=== PATIENT | female | born 1980 | race American Indian/Alaskan Native ===

== ENCOUNTER 2020-08-05 10:24 | Emergency (ER) | payer SELFPAY ==
--- NOTE | 2020-08-05 11:24 | XRay Report ---
RIGHT ANKLE 4 VIEW(S) INDICATION / CLINICAL INFORMATION: PAIBN AND SWELLING COMPARISON: None available. FINDINGS: BONES / JOINT(S): No acute fracture or subluxation. Ankle mortise intact. Small tibiotalar effusion. No significant arthritis. SOFT TISSUES: Mild edema. ADDITIONAL FINDINGS: None. Signer Name: Brian Cage MD Signed: 08/05/2020 11:20 AM Workstation Name: [id number]
[2020-08-05] MEDS ORDERED: HYDROcodone/ACETAMINOPHEN 5-325 MG TAB PO ONE (12:28)
--- NOTE | 2020-08-05 12:49 | Emergency Department Report ---
ED Lower Extremity HPI - General Chief Complaint: Extremity Injury, Lower Stated Complaint: ANKLE PAINS RT Time Seen by Provider: 08/05/20 11:11 Source: patient Mode of arrival: Wheelchair Limitations: No Limitations - History of Present Illness Initial Comments: Patient is a 40-year-old female presents emergency room with complaints of right ankle pain that began yesterday. She states that she was walking up the steps when she felt a popping sensation and had to brace herself. She denies falling to the ground. She denies any numbness or weakness. She states that she has increased pain with ambulation. She states that she had a sprain in this ankle in 2007 but denies any fracture or surgery. She has a past medical history of PCOS and cholecystectomy. she has an allergy to kiwi, strawberries, and nonoxynol 9. - Related Data Previous Rx's Medication Instructions Recorded Last Taken Type Naproxen [EC-Naprosyn] 500 mg PO BID PRN #20 tablet. 08/05/20 Unknown Rx Allergies Allergy/AdvReac Type Severity Reaction Status Date / Time kiwi Allergy Anaphylaxis Verified 08/05/20 10:30 nonoxynol 9 Allergy Anaphylaxis Verified 08/05/20 10:30 [From [place] Plus Spermicidal Jelly] strawberry Allergy Anaphylaxis Verified 08/05/20 10:30 ED Review of Systems ROS: Stated complaint: ANKLE PAINS RT Other details as noted in HPI Comment: All other systems reviewed and negative ED Past Medical Hx - Past Medical History Previous Medical History?: Yes Additional medical history: PCOS ANKLE PAIN LIG. DAMAGE - Surgical History Hx Cholecystectomy: Yes (2017) - Social History Smoking Status: Current Every Day Smoker - Medications Home Medications: Home Medications Medication Instructions Recorded Confirmed Last Taken Type Naproxen [EC-Naprosyn] 500 mg PO BID PRN #20 tablet. 08/05/20 Unknown Rx ED Physical Exam - General Limitations: No Limitations General appearance: alert, in no apparent distress - Head Head exam: Present: atraumatic, normocephalic - Eye Eye exam: Present: normal appearance - ENT ENT exam: Present: mucous membranes moist - Extremities Exam Extremities exam: Present: other (ttp and edema present to the right lateral malleolus, achiles tendon is intact, FROM of the right knee, ankle, foot, and toes with discomfort upon external rotation, no obvious deformity, neurovascularly intact) - Neurological Exam Neurological exam: Present: alert, oriented X3 - Psychiatric Psychiatric exam: Present: normal affect, normal mood - Skin Skin exam: Present: warm, dry, intact ED Course Vital Signs 08/05/20 10:35 Temperature 97.9 F Pulse Rate 73 Respiratory 18 Rate Blood Pressure 145/89 [Right] O2 Sat by Pulse 99 Oximetry ED Lower Extremity MDM - Radiology Data Radiology results: report reviewed RIGHT ANKLE 4 VIEW(S) INDICATION / CLINICAL INFORMATION: PAIBN AND SWELLING COMPARISON: None available. FINDINGS: BONES / JOINT(S): No acute fracture or subluxation. Ankle mortise intact. Small tibiotalar effusion. No significant arthritis. SOFT TISSUES: Mild edema. ADDITIONAL FINDINGS: None. Signer Name: Brian Cage MD Signed: 08/05/2020 11:20 AM Workstation Name: [id number] Transcribed By: Dictated By: BRIAN CAGE III Electronically Authenticated By: BRIAN CAGE III Signed Date/Time: 08/05/20 1120 DD/ 1119 TD/TT: - Medical Decision Making Patient is a 40-year-old female presents emergency room with complaints of right ankle pain that began yesterday. She states that she was walking up the steps when she felt a popping sensation and had to brace herself. She denies falling to the ground. She denies any numbness or weakness. She states that she has increased pain with ambulation. She states that she had a sprain in this ankle in 2007 but denies any fracture or surgery. She has a past medical history of PCOS and cholecystectomy. she has an allergy to kiwi, strawberries, and nonoxynol 9. VSS. on exam: ttp and edema present to the right lateral malleolus, achiles tendon is intact, FROM of the right knee, ankle, foot, and toes with discomfort upon external rotation, no obvious deformity, neurovascularly intact. XR right ankle: BONES / JOINT(S): No acute fracture or subluxation. Ankle mortise intact. Small tibiotalar effusion. No significant arthritis. SOFT TISSUES: Mild edema. ADDITIONAL FINDINGS: None. Examination appears consistent with a right ankle sprain. Patient placed in ankle stirrup splint by nurse and remained neurovascularly intact and was given crutches. pt given pain medication while in the ED as she states she did not drive. pt given prescription for naproxen. advised pt she would need close orthopedic follow up and that she could not bear weight until she was cleared by an orthopedic doctor. advised pt to please take medication as prescribed as needed. may use ice pack for 15 minutes at a time, rest, elevation of the leg. follow up with an orthopedic doctor. do not bear weight on the right leg until you have been cleared by an orthopedic doctor. return to the emergency room for any new or worsening symptoms. Critical care attestation.: If time is entered above; I have spent that time in minutes in the direct care of this critically ill patient, excluding procedure time. ED Disposition Clinical Impression: Right ankle effusion Right ankle sprain Qualifiers: Encounter type: initial encounter Involved ligament of ankle: unspecified ligament Qualified Code(s): S93.401A - Sprain of unspecified ligament of right ankle, initial encounter Disposition: TO HOME OR SELFCARE Is pt being admited?: No Does the pt Need Aspirin: No Condition: Stable Instructions: Ankle Sprain (ED), Ankle Stirrup Splint (ED), Crutch Instructions (ED) Additional Instructions: please take medication as prescribed as needed. may use ice pack for 15 minutes at a time, rest, elevation of the leg. follow up with an orthopedic doctor. do not bear weight on the right leg until you have been cleared by an orthopedic doctor. return to the emergency room for any new or worsening symptoms. Prescriptions: Naproxen [EC-Naprosyn] 500 mg PO BID PRN #20 tablet.dr RAYMOND Reason: pain Referrals: BRIAN BENAVIDES MD [Staff Physician] - 2-3 Days (orthopedic ) [facility] [Provider Group] - 2-3 Days PRIMARY CAREMD [Primary Care Provider] - 2-3 Days Time of Disposition: 12:56 Print Language: [place] CITIZ[place]
[2020-08-05 13:39] VITALS: BP 138/70
== END 2020-08-05 13:16 | disposition home or self-care (01) ==
LOC: ED 10:24
DX: S93.401A Sprain of unspecified ligament of right ankle, initial encounter (principal); M25.471 Effusion, right ankle; F17.200 Nicotine dependence, unspecified, uncomplicated; Z90.49 Acquired absence of other specified parts of digestive tract; Z98.890 Other specified postprocedural states; Z91.018 Allergy to other foods; X58.XXXA Exposure to other specified factors, initial encounter; Y93.89 Activity, other specified; Y92.89 Other specified places as the place of occurrence of the external cause; Y99.8 Other external cause status
CPT/HCPCS: 99283